=== PATIENT | female | born 1990 | race Caucasian/White ===

== ENCOUNTER 2017-08-13 10:31 | Inpatient (IN) | payer BC, OTHER ==
[~2017-08-13] VITALS: Ht 162.6 cm; Wt 81.6 kg
--- NOTE | 2017-08-13 11:30 | NUR ---
PRE-ASSESSMENT:ASSESSED PT IN INTAKE OFFICE, PT IS IN STABLE CONDITION, PT IS ALERT AND ORIENTED. PT IS ABLE TO SIGN CONSENT. EXPLAINED UNIT AND FACILITY PROTOCOLS. PT VERBALIZED COMPREHENSION
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
[2017-08-13] MEDS ORDERED: GABA800T2 PO (12:27)
[2017-08-13] MEDS ORDERED: QUET400T PO (12:27)
[2017-08-13 12:34] LABS: *URINE HCG, QUAL NEGATIVE (NEGATIVE)
[2017-08-13 12:45] LABS: *AMPHETAMINE, URINE POSITIVE (NEGATIVE); *BARBITURATE, URINE POSITIVE (NEGATIVE); *CANNABINOID, URINE POSITIVE (NEGATIVE); *COCCAINE, URINE POSITIVE (NEGATIVE); *OPIATE, URINE POSITIVE (NEGATIVE); *PHENCYCLIDINE SCREEN,URINE NEGATIVE (NEGATIVE)
[2017-08-13] MEDS ORDERED: DIAZEPAM 10 MG TABLET PO ONE (12:45)
[2017-08-13] MEDS ORDERED: BUPRENORPHINE HCL 2 MG TAB.SUBL SL ONE (12:45)
[2017-08-13] MEDS ORDERED: MIRALAX 17 GM POWD.PACK PO PRN (13:00)
[2017-08-13] MEDS ORDERED: BUPRENORPHINE HCL 2 MG TAB.SUBL SL PRN (13:00)
[2017-08-13] MEDS ORDERED: MAGNESIUM HYDROXIDE 30 ML LIQUID UDC PO PRN (13:00)
[2017-08-13] MEDS ORDERED: diphenhydrAMINE 50 MG CAPSULE PO PRN (13:00)
[2017-08-13] MEDS ORDERED: DIAZEPAM 5 MG TABLET PO PRN (13:00)
[2017-08-13] MEDS ORDERED: DIAZEPAM 10 MG TABLET PO PRN ×2 (13:00→13:15)
[2017-08-13] MEDS ORDERED: ONDANSETRON 4 MG/2 ML VIAL IM PRN (13:00)
[2017-08-13] MEDS ORDERED: MAG HYDROX/AL HYDROX/SIMETH 30 ML LIQUID UDC PO PRN (13:00)
[2017-08-13] MEDS ORDERED: CLONIDINE HCL 0.1 MG TABLET PO PRN (13:00)
[2017-08-13] MEDS ORDERED: LOPERAMIDE HCL 2 MG CAPSULE PO PRN (13:00)
[2017-08-13] MEDS ORDERED: THIAMINE HCL 200 MG/2 ML VIAL IM ONE (13:00)
[2017-08-13] MEDS ORDERED: LORAZEPAM 2 MG/1 ML VIAL IM PRN (13:00)
[2017-08-13] MEDS: GABAPENTIN 300 MG CAPSULE PO SCH ×3 (13:55→21:26)
[2017-08-13] MEDS: IBUPROFEN 600 MG TABLET PO PRN ×2 (13:56→21:25)
[2017-08-13] MEDS: ONDANSETRON ODT 4 MG TAB.RAPDIS SL PRN ×2 (13:56→21:40)
--- NOTE | 2017-08-13 13:56 | NUR ---
PRN Administered: pt with complaints of nausea and pain on her L hand. Prn motrin was administered for pain scale of 8/10 and zofran 4 mg for nausea.
[2017-08-13 14:20] LABS: BASOPHILS % (AUTO) 0.5 % (0.0-2.0); EOSINOPHILS # (AUTO) 0.1 K/uL (0.0-0.7); EOSINOPHILS % (AUTO) 1.7 % (0.0-7.0); HEMATOCRIT 37.1 % (31.2-41.9); HEMOGLOBIN 12.9 g/dL (10.9-14.3); LYMPHOCYTES # (AUTO) 1.6 K/uL (20.0-40.0); LYMPHOCYTES % (AUTO) 26.6 % (20.5-51.5); MEAN CORPUSCULAR HEMOGLOBIN 28.7 uug (24.7-32.8); MEAN CORPUSCULAR HGB CONC 35 g/dL (32.3-35.6); MEAN CORPUSCULAR VOLUME 82.4 fL (75.5-95.3); MONOCYTES # (AUTO) 0.4 K/uL (2.0-10.0); NEUTROPHILS % (AUTO) 64.2 % (38.5-71.5); PLATELET COUNT (AUTO) 288 K/uL (179-408); RED BLOOD CELL COUNT(AUTO) 4.51 MIL/uL (3.63-4.92); WHITE BLOOD COUNT (AUTO) 6.2 K/uL (3.8-11.8)
[2017-08-13 14:29] LABS: ALANINE AMINOTRANSFERASE 35 U/L (14-59); ALKALINE PHOSPHATASE 121 U/L (50-136); ASPARTATE AMINOTRANSFERASE 27 U/L (15-37); BILIRUBIN,TOTAL 0.7 mg/dL (0.2-1.0); CARBON DIOXIDE 26 mmol/L (21-32); CHLORIDE 101 mmol/L (98-107); CREATININE 0.7 mg/dL (0.6-1.3); GLUCOSE 128 mg/dL (74-106); POTASSIUM 3.4 mmol/L (3.5-5.1); TOTAL PROTEIN, SERUM 8.4 g/dL (6.4-8.2); UREA NITROGEN, BLOOD 11 mg/dL (7-18)
[2017-08-13 14:46] LABS: ETHANOL < 3 MG/DL (0-0)
[2017-08-13 15:31] VITALS: BP 115/73
[2017-08-13] MEDS: ACETAMINOPHEN 325 MG TABLET PO PRN (17:09)
[2017-08-13] MEDS: DIAZEPAM 10 MG TABLET PO PRN ×2 (17:10→21:41)
--- NOTE | 2017-08-13 17:10 | NUR ---
prn valium was administered pts ciwa is 16, pt noted crying and rocking in bed, pt with increased anxiety and agitation. 10 mg valium administered
[2017-08-13 17:41] VITALS: BP 125/89
--- NOTE | 2017-08-13 18:44 | NUR ---
end of shift night: pt is in stable condition, pt with intermittent pain on L hand. pt is admitted to [facility] mainly for opiate and benzo withdrawal/dependence. pt's last ciwa 16 before PRN valium and cows of 11. pt to start a 5 day subutex and valium taper tomorrow. pt with soft cast for immobilization to land hand. pain management alternated with motrin and tylenol. pt without A/R to medications administered. will endorse pt to php engineer nurse.
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
[2017-08-13 20:00] VITALS: BP 110/73
[2017-08-13] MEDS: QUETIAPINE FUMARATE 200 MG TABLET PO SCH (21:25)
[2017-08-13] MEDS: METHOCARBAMOL 750 MG TABLET PO PRN (21:40)
--- NOTE | 2017-08-13 21:40 | NUR ---
PRN SUBUTEX 4 MG, VALIUM 10 MG, ROBAXIN, MOTRIN, ZOFRAN ADMINISTRATION COWS 12 CIWA 12. Pt presents with moderate anxiety, moderate restlessness, sweats, chills, body aches, pain in left hand 9/10 and nausea. Denies vomiting. Safety measures in place. Call light within reach. Will continue to monitor.
--- NOTE | 2017-08-13 22:10 | NUR ---
PRN ZOFRAN 4 MG SL REASSESSMENT Pt reports improvement in nausea, denies any episodes of vomiting. Safety measures in place. Call light within reach. Will continue to monitor.
--- NOTE | 2017-08-13 22:40 | NUR ---
PRN SUBUTEX, VALIUM, ROBAXIN, MOTRIN REASSESSMENT COWS 7 CIWA 7. Pt has improvement in overall symptoms, mostly anxiety and restlessness. Pt reports improvement in body aches and left hand, but discomfort/pain still present at tolerable level 5/10. Safety measures in place. Call light within reach. Will continue to monitor.
[2017-08-14] VITALS: BP 109/68
[2017-08-14] MEDS: HYDROXYZINE PAMOATE 25 MG CAPSULE PO PRN (00:43)
[2017-08-14] MEDS: ACETAMINOPHEN 325 MG TABLET PO PRN (00:43)
[2017-08-14] MEDS: DICYCLOMINE HCL 20 MG TABLET PO PRN ×2 (00:43→21:38)
--- NOTE | 2017-08-14 00:43 | NUR ---
PRN VISTARIL, TYLENOL, BENTYL ADMINISTRATION Pt reports persistent anxiety and restlessness. Encouraged non-pharmacological ways of reducing stress and anxiety. Pt reports pain 8/10 in left hand and generalized body aches. Pt complains of stomach cramps. Safety measures in place. Call light within reach. Will continue to monitor.
--- NOTE | 2017-08-14 01:43 | NUR ---
PRN VISTARIL, TYLENOL, AND BENTYL REASSESSMENT Pt is laying in bed with eyes closed. Respirations 16, even and unlabored. Safety measures in place. Call light within reach. Will continue to monitor.
[2017-08-14 04:00] VITALS: BP 107/70
--- NOTE | 2017-08-14 04:00 | NUR ---
COWS/CIWA DEFERRED Pt is laying in bed with eyes closed, COWS/CIWA deferred, to be assessed when pt is awake per orders. Respirations 16, even and unlabored. Safety measures in place. Call light within reach. Will continue to monitor.
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
--- NOTE | 2017-08-14 07:30 | NUR ---
start of shift note: received pt from shift production supervisor nurse, pt is sleeping at this time, pt's last cows 11 and ciwa 12.. pt is admitted to [facility] for opiate/benzo withdrawal/dependence. pt without A/R to medication. will continue to monitor pt for any changes and continue to meet pts needs.
[2017-08-14 09:00] VITALS: BP 124/68
[2017-08-14] MEDS ORDERED: 5 DAY TAPER BUPRENORPHINE -SERENITY PROTOCOL SL PRN (09:00)
[2017-08-14] MEDS ORDERED: 5 DAY TAPER VALIUM-SERENITY PROTOCOL PO PRN (09:00)
[2017-08-14] MEDS ORDERED: TUBERCULIN,PURIF.PROT.DERIV. 5 TU/0.1 ML TEST ID ONE (09:00)
[2017-08-14] MEDS: BUPRENORPHINE HCL 2 MG TAB.SUBL SL SCH ×4 (10:03→21:37)
[2017-08-14] MEDS: DOCUSATE SODIUM 250 MG CAPSULE PO SCH (10:03)
[2017-08-14] MEDS: GABAPENTIN 300 MG CAPSULE PO SCH ×3 (10:03→21:38)
[2017-08-14] MEDS: MULTIVITAMINS,THERAPEUTIC TABLET PO SCH (10:03)
[2017-08-14] MEDS: DIAZEPAM 10 MG TABLET PO SCH ×4 (10:03→21:37)
[2017-08-14] MEDS: THIAMINE HCL 100 MG TABLET PO SCH (10:04)
[2017-08-14] MEDS: FOLIC ACID 1 MG TABLET PO SCH (10:04)
[2017-08-14 12:07] LABS: HEPATITIS B SURFACE AG Negative (Negative)
--- NOTE | 2017-08-14 13:00 | NUR ---
ciwa/ cows deferred, pt is sleeping at this time.
[2017-08-14 13:55] VITALS: BP 90/62
--- NOTE | 2017-08-14 14:39 | NUR ---
WOUND CARE CONSULT: PT PRESENTS WITH LEFT HAND/ARM SPLINT ORTHO DRESSING. DRESSING DRY AND INTACT AND LEFT IN PLACE. DEFER TO ORTHO. RT ELBOW OPEN WOUND NOTED, PRESENT ON ADMISSION. RECOMMENDATIONS MADE FOR WOUND CARE AND DISCUSSED WITH NURSING STAFF. RECOMMEND SURGICAL CONSULT FOR RT ELBOW WELL. WILL SEE PRN. RODRIGUEZ IN AGREEMENT WITH PLAN OF CARE. Addendum: 08/14/17 at 1441 by MEHDI ENGEL RN Amended: Links added.
--- NOTE | 2017-08-14 16:07 | NUR ---
Therapist prompted client to come into group today. Client agreed to try to make it to group.
[2017-08-14 17:04] VITALS: BP 117/67
[2017-08-14] MEDS ORDERED: DIAZEPAM 10 MG TABLET PO PRN ×2 (19:00)
[2017-08-14] MEDS ORDERED: DIAZEPAM 5 MG TABLET PO PRN (19:00)
--- NOTE | 2017-08-14 19:08 | NUR ---
end of shift note: pt is in stable condition at this time, pt was seen by wound nurse with new orders, pt is admitted to [facility] for benzo/opiate withdrawal/dependence. pt's last cows 3 and ciwa 4. pt with pending consultation for ortho and OT evaluation. pt without A/R to medications. will endorse pt to fast food shift lead nurse.
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
[2017-08-14 20:00] VITALS: BP 126/57
[2017-08-14] MEDS: IBUPROFEN 600 MG TABLET PO PRN (21:37)
[2017-08-14] MEDS: METHOCARBAMOL 750 MG TABLET PO PRN (21:37)
--- NOTE | 2017-08-14 21:37 | NUR ---
PRN MOTRIN, ROBAXIN, BENTYL ADMINISTRATION Pt presents with pain in left hand/finger and body aches 9/10. Pt also presents with stomach cramps. Safety measures in place. Call light within reach. Will continue to monitor.
[2017-08-14] MEDS: QUETIAPINE FUMARATE 200 MG TABLET PO SCH (21:38)
[2017-08-14] MEDS: NEOMY/BACITRAC/POLYMI OINT 28.35 GM TUBE TOP SCH (21:43)
--- NOTE | 2017-08-14 22:37 | NUR ---
PRN MOTRIN, ROBAXIN, AND BENTYL REASSESSMENT Pt reports improvement in pain in left hand and body aches to 5/10. Pt reports improvement in stomach cramps to tolerable level. Safety measures in place. Call light within reach. Will continue to monitor.
[2017-08-15] VITALS: BP 104/71
[2017-08-15 04:00] VITALS: BP 107/57
--- NOTE | 2017-08-15 04:00 | NUR ---
COWS/CIWA DEFERRED AND VITALS REFUSED Pt is laying in bed with eyes closed, COWS/CIWA deferred, to be assessed when pt is awake per orders. Vitals refused. Respirations 16, even and unlabored. Safety measures in place. Call light within reach. Will continue to monitor.
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
[2017-08-15 08:00] VITALS: BP 117/65
--- NOTE | 2017-08-15 08:00 | NUR ---
START OF SHIFT RECEIVED PT LAYING IN BED A/O X4, RESPIRATIONS EVEN AND UNLABORED. PT REPORTS BODY ACHES, RESTLESSNESS AND ANXIETY. SLIGHT TREMORS NOTED. NO NAUSEA REPORTED. PT IS ON A 5 DAY SUBUTEX AND 5 DAY VALIUM TAPER THAT STARTED ON 08/14/17; TOLERATING WELL. PT HAS A INDEX FINGER FX ON THE LEFT HAND, 2 CARLO ON HEAD FROM A LACERATION, BRUISING ON L LATERAL THIGH, R ARM, AND L HAND. ENCOURAGED PT TO INCREASE FLUIDS TO FACILITATE IN DETOX PROCESS. SIDE RAILS UP X2, CALL LIGHT WITHIN REACH. SZ AND FALL PRECAUTIONS TAKEN.
[2017-08-15] MEDS: DIAZEPAM 10 MG TABLET PO SCH ×3 (08:19→20:16)
[2017-08-15] MEDS: DOCUSATE SODIUM 250 MG CAPSULE PO SCH (08:19)
[2017-08-15] MEDS: BUPRENORPHINE HCL 2 MG TAB.SUBL SL SCH ×3 (08:19→20:15)
[2017-08-15] MEDS: MULTIVITAMINS,THERAPEUTIC TABLET PO SCH (08:20)
[2017-08-15] MEDS: GABAPENTIN 300 MG CAPSULE PO SCH ×3 (08:20→20:15)
[2017-08-15] MEDS: FOLIC ACID 1 MG TABLET PO SCH (08:20)
[2017-08-15] MEDS: NEOMY/BACITRAC/POLYMI OINT 28.35 GM TUBE TOP SCH ×2 (08:20→20:15)
[2017-08-15] MEDS: THIAMINE HCL 100 MG TABLET PO SCH (08:20)
--- NOTE | 2017-08-15 08:30 | NUR ---
[facility] k+= 3.4. made aware with new orders for labs to be drawn in the am.
--- NOTE | 2017-08-15 09:00 | NUR ---
OT Pt was seen by OT for eval for brace for left index finger. OT stated that brace is available via hospital supplier and is attempting to acquire the correct brace. OT instructed pt to keep left index finger immobilized. Reinforced education to pt with acknowledgement.
--- NOTE | 2017-08-15 09:30 | NUR ---
TRIPLE ATB AND TX Pt refused to have tx done to left elbow. Pt stated, " No! I don't want it fucking changed!"
[2017-08-15 12:57] VITALS: BP 121/64
[2017-08-15 14:58] LABS: CREATININE 0.9 mg/dL (0.6-1.3); MAGNESIUM 1.6 mg/dL (1.8-2.4); PHOSPHOROUS 3.6 mg/dL (2.5-4.9)
[2017-08-15 15:02] LABS: EOSINOPHILS # (AUTO) 0.2 K/uL (0.0-0.7); EOSINOPHILS % (AUTO) 4.1 % (0.0-7.0); LYMPHOCYTES % (AUTO) 46.4 % (20.5-51.5); MEAN CORPUSCULAR HEMOGLOBIN 28.3 uug (24.7-32.8); MEAN CORPUSCULAR HGB CONC 33 g/dL (32.3-35.6); MEAN CORPUSCULAR VOLUME 84.6 fL (75.5-95.3); MONOCYTES # (AUTO) 0.3 K/uL (2.0-10.0); MONOCYTES % (AUTO) 7.5 % (0.0-11.0); NEUTROPHILS # (AUTO) 1.8 K/uL (1.8-8.9); PLATELET COUNT (AUTO) 221 K/uL (179-408); WHITE BLOOD COUNT (AUTO) 4.3 K/uL (3.8-11.8)
[2017-08-15 15:19] LABS: HEMATOCRIT 30.5 % (31.2-41.9); HEMOGLOBIN 10.2 g/dL (10.9-14.3)
--- NOTE | 2017-08-15 15:40 | NUR ---
LABS Labs: Mg=1.6, RBC=3.6, Hgb=10.2, Hct=30.5. made aware.
[2017-08-15 16:00] VITALS: BP 114/58
[2017-08-15] MEDS ORDERED: MAGNESIUM OXIDE 400 MG TABLET PO ONE (17:00)
--- NOTE | 2017-08-15 17:30 | NUR ---
TX Pt allowed for treatment to be completed.
--- NOTE | 2017-08-15 18:46 | NUR ---
END OF SHIFT Pt A/O X4, RESPIRATIONS EVEN AND UNLABORED. PT REPORTS BODY ACHES, RESTLESSNESS AND ANXIETY. PT APPEARS AGITATED AND SLIGHT TREMORS NOTED. PT LAST COWS 6 AND CIWA 5 AT 1600. PT IS PT IS ON A 5 DAY SUBUTEX AND 5 DAY VALIUM TAPER THAT STARTED ON 08/14/17; TOLERATING WELL. PT HAS A INDEX FINGER FX ON THE LEFT HAND, 2 CARLO ON HEAD FROM A LACERATION, BRUISING ON L LATERAL THIGH, R ARM, AND L HAND. PT HAD OT CONSULT FOR FITTING FOR A NEW BRACE. DRESSING WAS CHANGED PER DOCTORS ORDERS. THE TYPE OF BRACE IS NOT IN STOCK AND WILL BE ORDERED. ENCOURAGED PT TO INCREASE FLUIDS TO FACILITATE IN DETOX PROCESS. SIDE RAILS UP X2, CALL LIGHT WITHIN REACH. SZ AND FALL PRECAUTIONS TAKEN. WILL GIVE ALL ENDORSEMENT TO HOUSE FATHER NURSE.
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
[2017-08-15 20:00] VITALS: BP_SYST 106; BP_DIAS 54; BP_DIAS 61
[2017-08-15] MEDS: IBUPROFEN 600 MG TABLET PO PRN (20:15)
[2017-08-15] MEDS: METHOCARBAMOL 750 MG TABLET PO PRN (20:15)
--- NOTE | 2017-08-15 20:15 | NUR ---
PRN ROBAXIN, MOTRIN AND BENTYL ADMINISTRATION Pt reports body aches and pain in left hand 05/21. Pt also reports stomach spasms/cramps. Safety measures in place. Call light within reach. Will continue to monitor.
[2017-08-15] MEDS: QUETIAPINE FUMARATE 200 MG TABLET PO SCH (20:16)
[2017-08-15] MEDS: DICYCLOMINE HCL 20 MG TABLET PO PRN (20:16)
--- NOTE | 2017-08-15 21:15 | NUR ---
PRN ROBAXIN, MOTRIN AND BENTYL REASSESSMENT Pt reports improvement in body aches to tolerable level. Pt reports pain 6/10 in left hand. Pt reports stomach cramps improved to tolerable level. Safety measures in place. Call light within reach. Will continue to monitor.
[2017-08-16] VITALS: BP 99/46
--- NOTE | 2017-08-16 | NUR ---
COWS/CIWA DEFERRED Pt is laying in bed with eyes closed, COWS/CIWA deferred, to be assessed when pt is awake. Respirations 16, even and unlabored. Safety measures in place. Call light within reach. Will continue to monitor.
[2017-08-16 04:00] VITALS: BP 95/47
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
--- NOTE | 2017-08-16 07:45 | NUR ---
BEGINNING OF SHIFT Patient endorsement report received from assistant casino shift manager nurse, all pertinent information discussed. patient is a 27 year old female admitted on: 08/13/2017, patient with admitting Dx: Opiate/bzo/ dependence. Patient currently with ongoing 5 day Valium and 5 day Subutex taper as ordered. well tolerated. During assistant casino shift manager patient received PRN: Robaxin, Motrin, and Bentyl last ciwa score of: 14 or cow score of: 13. slept for 7 hours. Received patient in room. Alert and oriented x 4. On fall and seizure precautions. Educated patient on the current plan of care for the day and medication regimen. Safety measures in place. call light kept with in reach, will continue to monitor closely.
[2017-08-16] MEDS ORDERED: BUPRENORPHINE HCL 2 MG TAB.SUBL SL SCH (09:00)
[2017-08-16 09:14] VITALS: BP 90/63
[2017-08-16] MEDS: DOCUSATE SODIUM 250 MG CAPSULE PO SCH (09:16)
[2017-08-16] MEDS: GABAPENTIN 300 MG CAPSULE PO SCH ×3 (09:16→20:21)
[2017-08-16] MEDS: MULTIVITAMINS,THERAPEUTIC TABLET PO SCH (09:17)
[2017-08-16] MEDS: FOLIC ACID 1 MG TABLET PO SCH (09:17)
[2017-08-16] MEDS: THIAMINE HCL 100 MG TABLET PO SCH (09:17)
[2017-08-16] MEDS: NEOMY/BACITRAC/POLYMI OINT 28.35 GM TUBE TOP SCH ×2 (09:17→22:11)
[2017-08-16] MEDS: DIAZEPAM 5 MG TABLET PO SCH ×4 (09:17→20:21)
--- NOTE | 2017-08-16 10:33 | NUR ---
Therapist prompted client about group times. Client stated she is not going to attend groups today because she does not feel well.
[2017-08-16 13:08] VITALS: BP 104/58
[2017-08-16] MEDS: MAGNESIUM OXIDE 400 MG TABLET PO SCH ×2 (14:18→20:21)
[2017-08-16] MEDS: PANTOPRAZOLE SODIUM 40 MG TABLET.DR PO SCH (14:18)
[2017-08-16] MEDS: BUPRENORPHINE HCL 2 MG TAB.SUBL SL SCH ×2 (14:18→20:22)
[2017-08-16 17:09] VITALS: BP 111/69
--- NOTE | 2017-08-16 18:08 | NUR ---
THerapist prompted client to attend group, client agreed to attend.
--- NOTE | 2017-08-16 18:51 | NUR ---
ORTHO COMMUNICATION Received called from Dr. Thapa, regarding left hand surgery. Patient consented and agreed for surgery tomorrow morning at 0730. Per Dr. Thapa spoke with patient and obtained consent regarding surgery. Patient to be NPO after midnight. Patient is aware. will continue to monitor.
--- NOTE | 2017-08-16 19:04 | NUR ---
END OF SHIFT Patient alert and oriented x4, compliant with therapeutic plan of care. Patient with admitting Dx: Opiate/BZO dependence. Patient continues on 5 day Subutex and 5 day Valium taper as ordered, well tolerated, patient currently on day 3 of taper, well tolerated, no ASE noted. 0900 assessment patient presented with: heart rate of: 92, flushed, difficulty sitting still, dilated pupils, mild bone and joint aches, moist eyes, irritable, and anxiety with cow score of: 10 and ciwa score of: 6; 1300 assessment patient presented with: heart rate of 90, c/o chills, mild anxiety, barely sweating, and mild agitation with cow score of: 8 and ciwa score of: 3; 1700 patient presented with: heart rate of 103, c/o chills, mild anxiety, barely sweating, and mild agitation with cow score of: 9 and ciwa score of: 3. Detox medication effective at reducing withdrawal symptoms. Patient encouraged adequate PO fluid intake as tolerated. Encouraged to attend group therapies/sessions to learn new coping skills to prevent relapse, denies any SI/HI. Patient received no PRNs during shift. Patient Patients Respirations even and unlabored. No SOB noted, lungs are clear upon auscultation. Skin warm and dry to touch. Abdomen soft and non-distended with (+) BS in all 4 quadrants. No complains of N/V/D or constipation noted. Bladder non-distended. Voids independently. Safety measures in place. Call light kept with in reach. All needs met and rendered. Patient endorsed to shift production supervisor nurse, all pertinent information discussed.
--- NOTE | 2017-08-16 19:15 | NUR ---
START OF SHIFT Received 27 year old female patient admitted on 08/13/17 for Opiate, methamphetamine, crack cocaine, Phenobarbital, marijuana and Xanax dependency. Pt is full code with RUBI. She reports a PMHx of seizure related to benzo withdrawal, anxiety, hep C and 2nd left finger injury. She reports using Heroin 2.5 gram IV daily for 4 months. Methamphetamine 1-2 puffs x1 week, Crack cocaine on 08/11/17 1-2 bowls. Phenobarbital 30 mg every 4 hours 1 month ago, marijuana 1-2 hits from a joint, and Xanax 12 mg daily for 4 months. Pt is currently receiving 5 day Subutex and 5 day Valium taper and tolerating well. Per endorsement, pt is scheduled to have surgery on left finger tomorrow at 0730. She will be NPO at midnight. Pt with right elbow abrasion, being treated with triple antibiotic. Pt is alert and oriented x4, breathing is even and unlabored. Safety measures in place. Will continue to monitor.
[2017-08-16 20:00] VITALS: BP 127/78
[2017-08-16] MEDS: QUETIAPINE FUMARATE 200 MG TABLET PO SCH (20:21)
[2017-08-16 22:55] LABS: *OCCULT BLOOD STOOL NEGATIVE (NEGATIVE)
--- NOTE | 2017-08-16 23:05 | NUR ---
NURSING NOTE Consents for surgery of closed reduction with possible open reduction of the second metacarpal fracture of left hand and pin fixation, and anesthesia were signed by pt. Pt verbalized understanding. Also explained to pt regarding NPO status after midnight. Pt verbalized understanding.
[2017-08-17] VITALS: BP 105/65
--- NOTE | 2017-08-17 03:15 | NUR ---
NURSING NOTE Pt was seen in the kitchen grabbing drinks. Reminded pt regarding her NPO status d/t her scheduled surgery in the morning. Pt became agitated was noted to bring V8 juice into her room. Reminded pt again about her NPO status. TRUSS ASSEMBLER flame cutting supervisor and primary nurse at bedside explaining risks of drinking fluids before surgery. Pt noted with agitation, and raising voice at staff. Allowed pt to have ice chips at bedside.
--- NOTE | 2017-08-17 04:00 | NUR ---
VITALS REFUSED, COWS/CIWA DEFERRED 0400 vitals refused. COWS and CIWA deferred d/t pt lying in bed with eyes closed noted to be asleep. Respirations 16, breathing is even and unlabored. Safety measures in place. Will monitor.
--- NOTE | 2017-08-17 05:30 | NUR ---
NPO Non-Compliance/Surgery Canceled: Patient observed going into kitchen to get a V8 drinks at 03:10. Patient informed that she is to NPO for surgery in the morning. Patient refused to surrender drink. Primary nurse was able to compromise with patient and allowed to have one small cup of fluids with ice. Cup was then removed from patient room at 04:00. At 05:30, patient went back into the kitchen and took a cup of water. Patient again educated on the risks of not being NPO, up to and including , and patient states, "I don't fucking care. I'm leaving tomorrow anyway." Patient also educated on the risks of not treating fracture of the left hard. Patient again responded that she did not care. Surgery Department was informed of the non-compliance with NPO. [place] from surgery contacted Anesthesiologist, who refused to do the procedure because the patient had drank fluids within 2 hours of scheduled procedure.
--- NOTE | 2017-08-17 07:11 | NUR ---
END OF SHIFT Pt is a 27 year old female patient admitted on 08/13/17 for Opiate, methamphetamine, crack cocaine, Phenobarbital, marijuana and Xanax dependency. Pt is full code with NKA. She reports a PMHx of seizure related to benzo withdrawal, anxiety, hep C and 2nd left finger injury. Pt continues on a 5 day Subutex and 5 day Valium taper and tolerating well. Pt's surgery was cancelled by anesthesiologist d/t non compliance with NPO status. Pt did not receive or request PRN medications. She slept a total of 8 hrs, Intake:1400mL, Void:x1, BM:0, COWS: 8, CIWA:5. Pt remains alert and oriented x4, breathing is even and unlabored. Safety measures in place. Will endorse to AM shift.
--- NOTE | 2017-08-17 07:45 | NUR ---
START OF SHIFT Rcvd endorsement from ongoing nurse, client is in room, she presents with depressed mood, flat affect, clammy skin noted to touch. She reports generalized body aches, restless legs, abdominal cramps, irritability because she is hungry, client was schedule for surgery this am, but it was cancelled d/t client not been compliant with NPO. Clients room is litter with several candy wraps, open apple juice, and soft drink bottles. L hand with splint d/t fracture 2nd metacarpal, she denies pain at this time. right elbow abrasion, treatment with triple antibiotic, slowly healing. Client is a 27 y/o female, admitted to [facility] for withdrawal from benzodiazepines and opiates. She is on a 6 day Valium taper and 5 day Subutex taper. Last CIWA 8 @ 1999. Client slept 8 hrs. She reports a hx of withdrawal-induced seizures, Client reports NKA, she is full code, regular diet. Side rails x 2 up/padded for seizure precautions. Call light within reach.
[2017-08-17 08:12] VITALS: BP 118/61
[2017-08-17] MEDS: BUPRENORPHINE HCL 2 MG TAB.SUBL SL SCH ×3 (08:30→21:17)
[2017-08-17] MEDS: THIAMINE HCL 100 MG TABLET PO SCH (08:30)
[2017-08-17] MEDS: GABAPENTIN 300 MG CAPSULE PO SCH ×3 (08:30→21:17)
[2017-08-17] MEDS: DOCUSATE SODIUM 250 MG CAPSULE PO SCH (08:30)
[2017-08-17] MEDS: FOLIC ACID 1 MG TABLET PO SCH (08:30)
[2017-08-17] MEDS: PANTOPRAZOLE SODIUM 40 MG TABLET.DR PO SCH (08:30)
[2017-08-17] MEDS: DIAZEPAM 5 MG TABLET PO SCH ×3 (08:30→21:18)
[2017-08-17] MEDS: MULTIVITAMINS,THERAPEUTIC TABLET PO SCH (08:30)
[2017-08-17] MEDS: NEOMY/BACITRAC/POLYMI OINT 28.35 GM TUBE TOP SCH ×2 (08:37→21:19)
[2017-08-17 12:00] VITALS: BP_SYST 108; BP_SYST 147; BP_DIAS 66; BP_DIAS 91
[2017-08-17] MEDS: IBUPROFEN 600 MG TABLET PO PRN ×2 (15:13→21:47)
--- NOTE | 2017-08-17 15:13 | NUR ---
PRN Motrin 600mg PO administered for left lower molar pain 02/18. Call light within reach.
--- NOTE | 2017-08-17 16:13 | NUR ---
Reassessment PRN Motrin 600mg PO left lower molar pain diminished to a tolerable 2/10.
[2017-08-17 16:55] VITALS: BP 127/80
--- NOTE | 2017-08-17 18:52 | NUR ---
END OF SHIFT Client is a 27 y/o female, a/o x 4, admitted to [facility] for withdrawal from benzodiazepines and opiates. She is on a 6 day Valium taper and 5 day Subutex taper. Last CIWA 5/ 7 @ 1600. PRN Motrin 600mg PO administered for L lower molar pain, noted effective. Encouragement needed to attend group therapy. Adequate fluid PO intake 1250mL, void x 3. She consumes 75-100% of meals. She reports a hx of withdrawal-induced seizures, Client reports NKA, she is full code, regular diet. Side rails x 2 up/padded for seizure precautions. Call light within reach.
--- NOTE | 2017-08-17 19:15 | NUR ---
START OF SHIFT Received 27 year old female patient admitted on 08/13/17 for Opiate, methamphetamine, crack cocaine, Phenobarbital, marijuana and Xanax dependency. Pt is full code with RUBI. She reports a PMHx of seizure related to benzo withdrawal, anxiety, hep C and 2nd left finger injury. She reports using Heroin 2.5 gram IV daily for 4 months. Methamphetamine 1-2 puffs x1 week, Crack cocaine on 08/11/17 1-2 bowls. Phenobarbital 30 mg every 4 hours 1 month ago, marijuana 1-2 hits from a joint, and Xanax 12 mg daily for 4 months. Pt is currently receiving 5 day Subutex and 5 day Valium taper and tolerating well. Per endorsement, she received PRN Motrin for left lower molar pain. Pt is alert and oriented x4, breathing is even and unlabored. Safety measures in place. Will continue to monitor.
[2017-08-17 20:00] VITALS: BP 130/83
[2017-08-17] MEDS: QUETIAPINE FUMARATE 200 MG TABLET PO SCH (21:17)
[2017-08-17] MEDS: MAGNESIUM OXIDE 400 MG TABLET PO SCH (21:18)
--- NOTE | 2017-08-17 21:47 | NUR ---
PRN MOTRIN Pt complains of left lower molar pain 05/21. PRN Motrin administered as ordered. Will monitor effectiveness.
--- NOTE | 2017-08-17 22:47 | NUR ---
PRN MOTRIN REASSESSMENT PRN medication effective. Pt is lying in bed with eyes closed noted to be asleep. No facial grimacing noted. Will continue to monitor.
--- NOTE | 2017-08-18 | NUR ---
VITALS REFUSED, COWS and CIWA DEFERRED 0000 vitals refused. COWS and CIWA deferred d/t pt lying in bed with eyes closed noted to be asleep. Breathing is even and unlabored. Safety measures in place. Will monitor.
--- NOTE | 2017-08-18 04:00 | NUR ---
VITALS REFUSED, COWS and CIWA DEFERRED 0400 vitals refused. COWS and CIWA deferred d/t pt lying in bed with eyes closed noted to be asleep. Breathing is even and unlabored. Safety measures in place. Will monitor.
--- NOTE | 2017-08-18 07:10 | NUR ---
END OF SHIFT Pt is a 27 year old female patient admitted on 08/13/17 for Opiate, methamphetamine, crack cocaine, Phenobarbital, marijuana and Xanax dependency. Pt is full code with RUBI. She reports a PMHx of seizure related to benzo withdrawal, anxiety, hep C and 2nd left finger injury. She continues on 5 day Subutex and 5 day Valium taper and tolerating well. She received PRN Motrin at 2147 for left lower molar pain. She slept a total of 7hrs, Intake: 1500mL, Void: x3, BM:x1, COWS:8, CIWA:5. Pt remains alert and oriented x4, breathing is even and unlabored. Safety measures in place. Will endorse to AM shift.
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
[2017-08-18 08:02] VITALS: BP 133/80
[2017-08-18] MEDS: DIAZEPAM 5 MG TABLET PO SCH ×2 (08:47→21:09)
[2017-08-18] MEDS: PANTOPRAZOLE SODIUM 40 MG TABLET.DR PO SCH (08:47)
[2017-08-18] MEDS: MULTIVITAMINS,THERAPEUTIC TABLET PO SCH (08:47)
[2017-08-18] MEDS: FOLIC ACID 1 MG TABLET PO SCH (08:47)
[2017-08-18] MEDS: GABAPENTIN 300 MG CAPSULE PO SCH ×2 (08:47→14:54)
[2017-08-18] MEDS: THIAMINE HCL 100 MG TABLET PO SCH (08:47)
[2017-08-18] MEDS: DOCUSATE SODIUM 250 MG CAPSULE PO SCH (08:47)
[2017-08-18] MEDS: IBUPROFEN 600 MG TABLET PO PRN (08:47)
--- NOTE | 2017-08-18 08:47 | NUR ---
PRN Motrin 600mg PO administered for left lower molar pain 04/20. Call light within reach.
[2017-08-18] MEDS: NEOMY/BACITRAC/POLYMI OINT 28.35 GM TUBE TOP SCH ×2 (08:48→21:10)
[2017-08-18] MEDS ORDERED: BUPRENORPHINE HCL 2 MG TAB.SUBL SL SCH (09:00)
[2017-08-18 09:09] LABS: BASOPHILS % (AUTO) 0.4 % (0.0-2.0); EOSINOPHILS # (AUTO) 0.1 K/uL (0.0-0.7); EOSINOPHILS % (AUTO) 2.9 % (0.0-7.0); HEMATOCRIT 32.3 % (31.2-41.9); HEMOGLOBIN 10.8 g/dL (10.9-14.3); LYMPHOCYTES # (AUTO) 1.3 K/uL (20.0-40.0); LYMPHOCYTES % (AUTO) 28.6 % (20.5-51.5); MEAN CORPUSCULAR HEMOGLOBIN 28.3 uug (24.7-32.8); MEAN CORPUSCULAR HGB CONC 34 g/dL (32.3-35.6); MEAN CORPUSCULAR VOLUME 84.5 fL (75.5-95.3); MONOCYTES # (AUTO) 0.3 K/uL (2.0-10.0); MONOCYTES % (AUTO) 7.4 % (0.0-11.0); NEUTROPHILS # (AUTO) 2.9 K/uL (1.8-8.9); NEUTROPHILS % (AUTO) 60.7 % (38.5-71.5); PLATELET COUNT (AUTO) 206 K/uL (179-408); RED BLOOD CELL COUNT(AUTO) 3.82 MIL/uL (3.63-4.92); WHITE BLOOD COUNT (AUTO) 4.7 K/uL (3.8-11.8)
--- NOTE | 2017-08-18 09:47 | NUR ---
Reassessment PRN Motrin 600mg PO left lower molar pain diminished to a tolerable 2/10.
[2017-08-18 12:30] VITALS: BP 121/79
[2017-08-18] MEDS: METHOCARBAMOL 750 MG TABLET PO PRN (12:32)
[2017-08-18] MEDS: DICYCLOMINE HCL 20 MG TABLET PO PRN (12:32)
--- NOTE | 2017-08-18 12:32 | NUR ---
PRN Clonidine 0.1mg PO, Bentyl 20mg PO, Robaxin 750mg PO administered for anxiety MB increased P 110, abdominal spasms, and generalized body aches 03/20 respectively. Will continue to monitor.
--- NOTE | 2017-08-18 13:32 | NUR ---
Reassessment PRN Clonidine 0.1mg PO, Bentyl 20mg PO, Robaxin 750mg PO decreased P 93, she reports relief from abdominal spasms, and generalized body aches 3/10, but decline Tylenol or Motrin at this time, stating 'I'm going to wait and see Dr damian." Call light within reach.
--- NOTE | 2017-08-18 15:15 | NUR ---
NEW ORDER NPO after midnight, strict room restrictions, ortho surgery in AM. Addendum: 08/18/17 at 1836 by BRITTNY MUNOZ RN for Monday08/19/17
[2017-08-18] MEDS: BUPRENORPHINE HCL 2 MG TAB.SUBL SL SCH ×2 (15:31→21:09)
[2017-08-18] MEDS: KETOROLAC TROMETHAMINE 30 MG INJ IM PRN (15:32)
--- NOTE | 2017-08-18 15:32 | NUR ---
PRN Toradol 30mg Inj IM to R buttock for generalized body aches 05/21, client tolerated well. Will continue to monitor. call light within reach.
--- NOTE | 2017-08-18 15:45 | NUR ---
MD Notification Dr. Lama made aware of client's increased pulse 0800 P 114, 1200 P110, 1540 P107, client denies any chest pain, she reports generalized body aches and Left lower molar pain. NNO at this time. Charge nurse notified.
[2017-08-18 16:00] VITALS: BP 128/84
--- NOTE | 2017-08-18 16:02 | NUR ---
Reassessment PRN Toradol 30mg Inj IM, client verbalized relief from generalized body aches 2/10, but tolerable.
--- NOTE | 2017-08-18 19:15 | NUR ---
START OF SHIFT NOTE : Pt. is 27 year old female patient admitted on 08/13/17 for Opiate, methamphetamine, crack cocaine, Phenobarbital, marijuana and Xanax dependency. Pt is full code with NKA. She reports a PMHx of seizure related to benzo withdrawal, anxiety, hep C and 2nd left finger injury. Pt is currently on modified 6 day Subutex and 7 day Valium taper and tolerating well. Per endorsement, pt is scheduled to have surgery on left finger On Monday in A.M. She will be NPO on Monday after midnight. Pt with right elbow abrasion, being treated with triple antibiotic. Pt is alert and oriented x4, breathing is even and unlabored, is resting in the room. Safety measures in place : bed on lowest position with side rails x2 up for safety, call light within reach. Will continue to monitor closely and offer help.
--- NOTE | 2017-08-18 19:36 | NUR ---
END OF SHIFT Client is a 27 y/o female, a/o x 4, admitted to [facility] for withdrawal from benzodiazepines and opiates. She is on extended 7 day Valium taper and 6 day Subutex taper. Last CIWA 8 @ 1600. PRN Motrin 600mg PO administered for L lower molar pain, PRN Toradol 30mg Inj IM to R buttock for generalized body aches 05/21, noted effective. NPO after midnight, strict room restrictions, ortho surgery in AM for Monday. Encouragement needed to attend group therapy. Adequate fluid PO intake 2536mL, void x 4., stool x 1. She consumes 75-100% of meals. She reports a hx of withdrawal-induced seizures, Client reports NKA
[2017-08-18 20:00] VITALS: BP 119/80
[2017-08-18] MEDS ORDERED: GABAPENTIN 300 MG CAPSULE PO SCH (21:00)
--- NOTE | 2017-08-18 21:00 | NUR ---
PRN VISTARIL Pt. complains of increased level of anxiety. PRN VISTARIL given as ordered . Safety measures in place : bed on lowest position with side rails x2 up for safety, call light within reach. Will continue to monitor closely and offer help.
[2017-08-18] MEDS: CLONIDINE HCL 0.1 MG TABLET PO SCH (21:08)
[2017-08-18] MEDS: QUETIAPINE FUMARATE 200 MG TABLET PO SCH (21:09)
[2017-08-18] MEDS: BACLOFEN 10 MG TABLET PO SCH (21:09)
[2017-08-18] MEDS: HYDROXYZINE PAMOATE 25 MG CAPSULE PO PRN (21:09)
--- NOTE | 2017-08-18 22:00 | NUR ---
RE-ASSESSMENT Pt. is sleeping, RR=16 unlabored and even. Safety measures in place : bed on lowest position with side rails x2 up for safety, call light within reach. Will continue to monitor closely and offer help.
--- NOTE | 2017-08-19 06:49 | NUR ---
END OF SHIFT NOTE : Pt. is 27 year old female patient admitted on 08/13/17 for Opiate, methamphetamine, crack cocaine, Phenobarbital, marijuana and Xanax dependency. Pt is full code with NKA. She reports a PMHx of seizure related to benzo withdrawal, anxiety, hep C and 2nd left finger injury. Pt is currently on modified 6 day Subutex and 7 day Valium taper and tolerating well. Per endorsement, pt is scheduled to have surgery on left finger On Monday in A.M. She will be NPO on Monday after midnight. Pt with right elbow abrasion, being treated with triple antibiotic. Pt remains compliant with the treatment plan. PRN VISTARIL was given during my shift. V/S remain WNL. RR=16, even and unlabored, lungs clear upon auscultation, abdomen soft and non- distended. Pt denies nausea, vomiting and diarrhea at this moment. CIWA and COWS taken when pt. was alert during the night, LAST CIWA=5 , COWS=5 at 0400 , [id number], voided x3 , slept 3 hours. Safety measures in place : bed on lowest position with side rails x2 up for safety, call light within reach. Will continue to monitor closely and offer help.
--- NOTE | 2017-08-19 07:28 | NUR ---
START OF SHIFT RECEIVED PT RESTING IN BED, A/O X4, RESPIRATIONS EVEN AND UNLABORED. PT HAS A INJURY ON THE LEFT FINGER ON THE LEFT HAND; SCHEDULED SURGERY ON MONDAY AM. NPO AFTER MIDNIGHT TONIGHT. PT HAS A RIGHT ELBOW ABRASION, DRESSING DRY AND INTACT. PT IS ON A MODIFIED 6 DAY SUBUTEX AND 7 DAY VALIUM TAPER. ENCOURAGED PT TO INCREASE FLUID INTAKE TO PROMOTE DETOX PROCESS. BED ON LOWEST POSITION, SIDE RAILS UP X2. CALL LIGHT WITHIN REACH. ALL SAFETY MEASURES TAKEN. WILL CONTINUE TO MONITOR.
[2017-08-19 08:00] VITALS: BP 128/83
[2017-08-19] MEDS: DOCUSATE SODIUM 250 MG CAPSULE PO SCH (08:23)
[2017-08-19] MEDS: CLONIDINE HCL 0.1 MG TABLET PO SCH (08:23)
[2017-08-19] MEDS: FOLIC ACID 1 MG TABLET PO SCH (08:24)
[2017-08-19] MEDS: MULTIVITAMINS,THERAPEUTIC TABLET PO SCH (08:25)
[2017-08-19] MEDS: BACLOFEN 10 MG TABLET PO SCH (08:25)
[2017-08-19] MEDS: NEOMY/BACITRAC/POLYMI OINT 28.35 GM TUBE TOP SCH ×2 (08:26→21:28)
[2017-08-19] MEDS: PANTOPRAZOLE SODIUM 40 MG TABLET.DR PO SCH (08:29)
[2017-08-19] MEDS ORDERED: DIAZEPAM 5 MG TABLET PO SCH (09:00)
[2017-08-19] MEDS ORDERED: GABAPENTIN 300 MG CAPSULE PO SCH (09:00)
[2017-08-19] MEDS ORDERED: BUPRENORPHINE HCL 2 MG TAB.SUBL SL SCH (09:00)
[2017-08-19] MEDS: THIAMINE HCL 100 MG TABLET PO SCH (09:27)
[2017-08-19] MEDS: KETOROLAC TROMETHAMINE 30 MG INJ IM PRN ×2 (09:27→16:33)
--- NOTE | 2017-08-19 09:27 | NUR ---
PRN PT C/O OF PAIN IN THE LEFT INDEX FINGER 8/10 PAIN. TORADOL 30 MG IM PRN GIVEN AT 09.
--- NOTE | 2017-08-19 10:00 | NUR ---
REASSESSMENT TORADOL 30 MG IM ON THE L BUTTOCKS GIVEN. PT STATED MEDICATION WAS EFFECTIVE UPON REASSESSMENT.
[2017-08-19 12:00] VITALS: BP 101/52
[2017-08-19] MEDS ORDERED: hydrALAZINE HCL 50 MG TABLET PO PRN (13:00)
[2017-08-19] MEDS: GABAPENTIN 300 MG CAPSULE PO SCH ×2 (14:16→21:30)
[2017-08-19] MEDS: BACLOFEN 20 MG TABLET PO SCH ×2 (14:16→21:29)
[2017-08-19] MEDS ORDERED: PROPRANOLOL HCL 20 MG TABLET PO SCH (15:00)
[2017-08-19] MEDS ORDERED: PROP20TA22 PO (15:11)
[2017-08-19] MEDS ORDERED: BACL20TA PO (15:11)
[2017-08-19] MEDS ORDERED: QUET200T PO (15:11)
[2017-08-19] MEDS ORDERED: PANT40TA2 PO (15:11)
[2017-08-19] MEDS ORDERED: IBUP-1955 PO (15:11)
[2017-08-19] MEDS ORDERED: DICY20TA28 PO (15:11)
[2017-08-19] MEDS ORDERED: DIPH50CA37 PO (15:11)
[2017-08-19] MEDS ORDERED: HYDR-3895 PO (15:11)
[2017-08-19] MEDS ORDERED: GABA-534 PO (15:11)
[2017-08-19 16:00] VITALS: BP 121/75
--- NOTE | 2017-08-19 16:33 | NUR ---
PRN PT C/O OF PAIN 9/10 IN THE L INDEX FINGER AND REQUESTED TORADOL. TORADOL 30 MG IM PRN GIVEN ON R BUTTOCK.
--- NOTE | 2017-08-19 18:52 | NUR ---
END OF SHIFT PT SITTING IN THE ROOM, ANGRY AFFECT, A/O X4, RESPIRATIONS EVEN AND UNLABORED. PT REPORTED FEELING MORE ANXIOUS THAN EARLIER IN THE DAY, BODY ACHES, RESTLESSNESS, AND HOT FLASHES. APPEARED VERY AGITATED. PT REPORTED PAIN IN THE LEFT INDEX FINGER FROM AN INJURY WHICH SHE HAS A SURGERY SCHEDULED ON MONDAY AM; PT IS TO BE NPO AFTER MIDNIGHT AND ON RR. DRESSING CHANGED, DRY AND INTACT ON THE RIGHT ELBOW ABRASION DURING SHIFT. PT IS ON A MODIFIED 6 DAY SUBUTEX AND 7 DAY VALIUM TAPER, LAST DAY WAS TODAY. LAST COWS 7 AND CIWA 6 AT 1600. PT WAS GIVEN TORADOL 30 MG IM PRN TO THE L BUTTOCKS AT 0927 AND 1633 FOR PAIN IN THE L INDEX FINGER. PT VERBALIZED EFFECTIVENESS AT REASSESSMENT. ENCOURAGED PT TO INCREASE FLUID INTAKE TO PROMOTE DETOX PROCESS. BED ON LOWEST POSITION, SIDE RAILS UP X2. CALL LIGHT WITHIN REACH. ALL SAFETY MEASURES TAKEN. WILL GIVE ALL ENDORSEMENT TO COMMUNICATIONS MANAGER NURSE.
--- NOTE | 2017-08-19 19:15 | NUR ---
START OF SHIFT NOTE : Pt. is a 24 yo male admitted to [facility] on 08/18/2017 for BZD and suboxone dependence. NKA, full code status, and on a regular diet. PMH of neuropathy, seizures r/t drug withdrawal, neuropathy, anxiety, mood disorder, asthma, and ADHD. Pt. placed on modified 6 days Phenobarbital an dmodified 6 days Subutex taper on 08/18/2017, tolerating well. Pt. is in the activity room , watching TV , but wants his medications after 20:00. . Safety measures in place : bed on lowest position with side rails x2 up for safety, call light within reach. Will continue to monitor closely and offer help. Addendum: 08/20/17 at 0204 by CONCHITA BANEGAS RN Wrong patient.
--- NOTE | 2017-08-19 19:16 | NUR ---
START OF SHIFT NOTE : Pt. is 27 year old female patient admitted on 08/13/17 for Opiate, methamphetamine, crack cocaine, Phenobarbital, marijuana and Xanax dependency. Pt is full code with NKA. She reports a PMHx of seizure related to benzo withdrawal, anxiety, hep C and 2nd left finger injury. Pt is currently on modified 6 day Subutex and 7 day Valium taper and tolerating well. Per endorsement, pt is scheduled to have surgery on left finger nn Monday at 07:30 A.M. She will be NPO after midnight today. Pt with right elbow abrasion, being treated with triple antibiotic. Pt is alert and oriented x4, breathing is even and unlabored, is eating in the room. Safety measures in place : bed on lowest position with side rails x2 up for safety, call light within reach. Will continue to monitor closely and offer help.
[2017-08-19 20:00] VITALS: BP 135/78
--- NOTE | 2017-08-19 21:00 | NUR ---
PRN VISTARIL, MOTRIN Pt. complains of increased level of anxiety, tooth pain 02/18. PRN VISTARIL, MOTRIN given as ordered. Safety measures in place : bed on lowest position with side rails x2 up for safety, call light within reach. Will continue to monitor closely and offer help.
[2017-08-19] MEDS: HYDROXYZINE PAMOATE 25 MG CAPSULE PO PRN (21:29)
[2017-08-19] MEDS: PROPRANOLOL HCL 20 MG TABLET PO SCH (21:29)
[2017-08-19] MEDS: QUETIAPINE FUMARATE 200 MG TABLET PO SCH (21:29)
[2017-08-19] MEDS: IBUPROFEN 600 MG TABLET PO PRN (21:54)
--- NOTE | 2017-08-20 | NUR ---
NPO , ROOM SEARCHED , ALL FOOD and DRINKS REMOVED Consent for operation and general anaesthesia obtained.
[2017-08-20 06:28] VITALS: BP 95/60
--- NOTE | 2017-08-20 06:54 | NUR ---
END OF SHIFT NOTE : Pt. is 27 year old female patient admitted on 08/13/17 for Opiate, methamphetamine, crack cocaine, Phenobarbital, marijuana and Xanax dependency. Pt is full code with NKA. She reports a PMHx of seizure related to benzo withdrawal, anxiety, hep C and 2nd left finger injury. Pt is currently on modified 6 day Subutex and 7 day Valium taper and tolerating well. Per endorsement, pt is scheduled to have surgery on left finger today at 07:30 A.M. She is NPO after midnight. Pt remains compliant with the treatment plan. PRN VISTARIL, MOTRIN were given during my shift. V/S remain WNL. RR=16, even and unlabored, lungs clear upon auscultation, abdomen soft and non- distended. Pt denies nausea, vomiting and diarrhea. CIWA and COWS taken when pt. was alert during the night, LAST CIWA=4 ,COWS=5 at 0400 , [id number] ml, voided 5 x , slept 6 hours. Safety measures in place : bed on lowest position with side rails x2 up for safety, call light within reach. Will continue to monitor closely and offer help.
--- NOTE | 2017-08-20 06:54 | NUR ---
REPORT TO OP RN GIVEN
--- NOTE | 2017-08-20 06:59 | NUR ---
Discharge note : Pt. is in stable condition , BP=95/60, HR=76/min, Temp=98.2, SpO2=97%, Left hand pain level=2/10, denies any suicidal or homicidal ideations, all discharge irving work signed and dated, pt will be discharged from [facility] 08/20/2017 at 0715 , when OP RN will pick her up. Pt. will left the unit for surgery, scheduled at 07:30. notified. Report to OP RN given.
--- NOTE | 2017-08-20 07:15 | NUR ---
Pt to OR in stable condition
[2017-08-20] MEDS: NEOMY/BACITRAC/POLYMI OINT 28.35 GM TUBE TOP SCH ×2 (09:00→21:45)
[2017-08-20] MEDS: FOLIC ACID 1 MG TABLET PO SCH (09:00)
[2017-08-20] MEDS: GABAPENTIN 300 MG CAPSULE PO SCH ×3 (09:00→21:44)
[2017-08-20] MEDS: PROPRANOLOL HCL 20 MG TABLET PO SCH ×2 (09:00→21:45)
[2017-08-20] MEDS: MULTIVITAMINS,THERAPEUTIC TABLET PO SCH (09:00)
[2017-08-20] MEDS: BACLOFEN 20 MG TABLET PO SCH ×3 (09:00→19:37)
[2017-08-20] MEDS: DOCUSATE SODIUM 250 MG CAPSULE PO SCH (09:00)
[2017-08-20] MEDS: THIAMINE HCL 100 MG TABLET PO SCH (09:00)
[2017-08-20] MEDS: PANTOPRAZOLE SODIUM 40 MG TABLET.DR PO SCH (09:00)
--- NOTE | 2017-08-20 10:05 | NUR ---
PT RETURNED FROM OR.A/O X 4 . REPORT RECEIVED FROM TORY LISA. RN REPORTS PT HAD CLOSED REDUCTION SX WITH A PIN INSERTED TO LEFT 2ND METACARPAL. BP ON ARRIVAL TO UNIT 113/79 95 98.3 95% 16. IV LACTATED RINGERS RUNNING RFA PATENT WITH NO REDNESS OR SWELLING NOTED. SHE REPORTS PAIN /. WILL CONTACT PHARMACY REGARDING NEW ORDERS.
[2017-08-20] MEDS ORDERED: HYDROMORPHONE 1 MG/1 ML DISP.SYRIN IV PRN (10:15)
[2017-08-20] MEDS ORDERED: IV NS 1000 ML 1,000 ML IV PRN (10:15)
[2017-08-20] MEDS ORDERED: HYDROCODONE/APAP 5-325MG TABLET PO PRN (10:15)
--- NOTE | 2017-08-20 10:25 | NUR ---
PRN NORCO GIVEN FOR PAIN 10/10 PER MD. WILL MONITOR EFFECTIVENESS.
[2017-08-20] MEDS ORDERED: MORPHINE SULFATE 4 MG/1 ML DISP.SYRIN IV PRN (10:45)
--- NOTE | 2017-08-20 11:25 | NUR ---
PRN NORCO EFFECTIVE PT IS SLEEPING.
[2017-08-20 12:00] VITALS: BP 115/72
[2017-08-20] MEDS ORDERED: IBUPROFEN 800 MG TABLET PO PRN (12:00)
[2017-08-20] MEDS: METHOCARBAMOL 750 MG TABLET PO PRN (12:35)
--- NOTE | 2017-08-20 12:39 | NUR ---
PRN MOTRIN 800 MG PO GIVEN AND ROBAXIN PO PRN GIVEN FOR REPORTED PAIN 8/10 ON SCALE. WILL MONITOR EFFECTIVENESS.
--- NOTE | 2017-08-20 13:39 | NUR ---
PT STATES MOTRIN AND ROBAXIN WERE NOT EFFECTIVE. SHE IS DEMANDING NARCOTICS AND THREATENING TO LEAVE AMA IF SHE DOES NOT RECEIVE THEM. MD MADE AWARE. ONE TIME TORADOL 60 MG IM ORDERED FOR PAIN 8 /10 ON SCALE. WILL MONITOR EFFECTIVENESS.
--- NOTE | 2017-08-20 14:14 | NUR ---
IV NS @ 100cc/hr started via pump
[2017-08-20] MEDS ORDERED: KETOROLAC TROMETHAMINE 60 MG INJ IM ONE (14:15)
--- NOTE | 2017-08-20 14:20 | NUR ---
PT STATES TORADOL WAS EFFECTIVE AND STATES PAIN IS 6/10 ON SCALE. WILL CONTINUE TO MONITOR.
[2017-08-20] MEDS: ACETAMINOPHEN ES 500 MG TABLET PO SCH ×2 (14:31→21:44)
[2017-08-20] MEDS: CEFAZOLIN 1 G in PREMIXED 1 EACH IV SCH ×2 (15:01→23:47)
[2017-08-20 16:00] VITALS: BP 121/74
--- NOTE | 2017-08-20 18:40 | NUR ---
END OF SHIFT: PT WENT FOR L HAND SURGERY THIS AM TO L 2ND METACARPAL. CLOSED REDUCTION DONE IN OR . PT RETURNED AT 1005 WITH FULL ARM SOFT CAST. SHE HAS NS RUNNING AT 100 TO RFA.IV SITE PATENT WITH NO REDNESS OR SWELLING NOTED. NORCO GIVEN BEFORE NARCOTICS WERE DISCONTINUED. 60 MG TORADOL ONE TIME GIVEN IM AND MOTRIN AND ROBAXIN ALSO GIVEN OR PAIN ALONG WITH SCHEDULED TYLENOL. NON NARCOTIC PRN MEDS AVAILABLE FOR PAIN. PT IS IRRITABLE AND STATES SHE IS UNHAPPY THAT SHE IS NOT GETTING NARCOTICS FOR PAIN.OFFERED SUPPORT.ENCOURAGED REST. WILL PASS SHIFT REPORT TO ONCOMING NURSE.TAPERS COMPLETED. LAST COWS 2 CIWA 1. WILL PASS SHIFT REPORT TO ONCOMING NIGHT NURSE.
--- NOTE | 2017-08-20 19:15 | NUR ---
START OF SHIFT NOTE : Pt. is 27 year old female patient admitted on 08/13/17 for Opiate, methamphetamine, crack cocaine, Phenobarbital, marijuana and Xanax dependency. Pt is full code with RUBI. She reports a PMHx of seizure related to benzo withdrawal, anxiety, hep C and 2nd left finger injury. Pt completed modified 6 day Subutex and 7 day Valium taper , tolerated well. Per endorsement, pt came from surgery WITH FULL ARM SOFT CAST. SHE HAS NS RUNNING AT 100 TO RFA. IV SITE PATENT WITH NO REDNESS OR SWELLING. Pt is alert and oriented x3, breathing is even and unlabored, is eating in the room. Safety measures in place : bed on lowest position with side rails x2 up for safety, call light within reach. Will continue to monitor closely and offer help.
[2017-08-20] MEDS: KETOROLAC TROMETHAMINE 30 MG INJ IM PRN (19:38)
[2017-08-20 20:00] VITALS: BP 110/77
[2017-08-20] MEDS ORDERED: IBUP-1957 PO (20:07)
[2017-08-20] MEDS ORDERED: ACET-2605 PO (20:07)
--- NOTE | 2017-08-20 21:00 | NUR ---
PRN TORADOL IM, VISTARIL, BENADRYL Pt. complains of increased level of anxiety, mild sleeplessness, pain in the left hand 8/10. PRN TORADOL IM, VISTARIL, BENADRYL given as ordered. Safety measures in place : bed on lowest position with side rails x2 up for safety, call light within reach. Will continue to monitor closely and offer help.
[2017-08-20] MEDS: QUETIAPINE FUMARATE 200 MG TABLET PO SCH (21:45)
--- NOTE | 2017-08-20 22:00 | NUR ---
RE-ASSESSMENT TORADOL IM, VISTARIL, BENADRYL Pt. is sleeping, RR=16 unlabored and even. Safety measures in place : bed on lowest position with side rails x2 up for safety, call light within reach. Will continue to monitor closely and offer help.
[2017-08-20] MEDS: HYDROXYZINE PAMOATE 25 MG CAPSULE PO PRN (23:47)
--- NOTE | 2017-08-21 00:15 | NUR ---
IV DOESN'T WORK , STOPPED
--- NOTE | 2017-08-21 03:00 | NUR ---
PRN TORADOL IM, Pt. complains of pain in the left hand 04/20. PRN TORADOL IM given as ordered. Safety measures in place : bed on lowest position with side rails x2 up for safety, call light within reach. Will continue to monitor closely and offer help.
--- NOTE | 2017-08-21 04:00 | NUR ---
RE-ASSESSMENT TORADOL IM Pt. is sleeping, RR=16 unlabored and even. Safety measures in place : bed on lowest position with side rails x2 up for safety, call light within reach. Will continue to monitor closely and offer help.
[2017-08-21] MEDS: KETOROLAC TROMETHAMINE 30 MG INJ IM PRN (05:03)
--- NOTE | 2017-08-21 06:31 | NUR ---
END OF SHIFT NOTE : Pt. is 27 year old female patient admitted on 08/13/17 for Opiate, methamphetamine, crack cocaine, Phenobarbital, marijuana and Xanax dependency. Pt is full code with NKA. She reports a PMHx of seizure related to benzo withdrawal, anxiety, hep C and 2nd left finger injury. Pt completed modified 6 day Subutex and 7 day Valium taper , tolerated well. Pt came from surgery WITH FULL ARM SOFT CAST. IV site doesnt work properly, IV was stopped after MN. Pt remains partially compliant with the treatment plan. PRN TORADOL, BENADRYL, VISTARIL were given during my shift. V/S remain WNL. RR=16, even and unlabored, lungs clear upon auscultation, abdomen soft and non- distended. Pt denies nausea, vomiting and diarrhea. CIWA and COWS taken when pt. was alert during the night, LAST CIWA=3 ,COWS=4 at 0400 , [id number] ml, voided x 5, slept 4 1/2 hours. Safety measures in place : bed on lowest position with side rails x2 up for safety, call light within reach. Will continue to monitor closely and offer help.
--- NOTE | 2017-08-21 07:41 | NUR ---
START OF SHIFT Received report from rn shift mgr nurse. 27 year old female patient admitted on 08/13/17 for opiate, benzo, methamphetamine, and crack/cocaine withdrawals. Pt has completed a 6 day Subutex and 7 day Valium taper and is medically cleared for discharge. No S/S of acute withdrawals. Pt had a fracture on left hand and completed scheduled surgery on 08/21/17, pt is currently in a hard cast, pt to follow up outpatient. Toradol administered x2 for pain and effective. PRN Vistaril administered and effective. Pt slept for 5 hours. IV removed due to infiltration. Wound care provided by night nurse. Most recent CIWA is 3, and COWS 4. All needs met at this time, will continue to monitor.
[2017-08-21 08:09] VITALS: BP 103/79
[2017-08-21 08:34] VITALS: BP 103/79
[2017-08-21] MEDS: MULTIVITAMINS,THERAPEUTIC TABLET PO SCH (08:34)
[2017-08-21] MEDS: PROPRANOLOL HCL 20 MG TABLET PO SCH (08:34)
[2017-08-21] MEDS: GABAPENTIN 300 MG CAPSULE PO SCH (08:35)
[2017-08-21] MEDS: PANTOPRAZOLE SODIUM 40 MG TABLET.DR PO SCH (08:35)
[2017-08-21] MEDS: FOLIC ACID 1 MG TABLET PO SCH (08:35)
[2017-08-21] MEDS: THIAMINE HCL 100 MG TABLET PO SCH (08:35)
[2017-08-21] MEDS: DOCUSATE SODIUM 250 MG CAPSULE PO SCH (08:35)
[2017-08-21] MEDS: ACETAMINOPHEN ES 500 MG TABLET PO SCH (08:35)
[2017-08-21] MEDS: BACLOFEN 20 MG TABLET PO SCH (08:35)
[2017-08-21] MEDS: NEOMY/BACITRAC/POLYMI OINT 28.35 GM TUBE TOP SCH (08:39)
--- NOTE | 2017-08-21 10:52 | NUR ---
D/C NOTE Pt is in stable condition. Vitals WNL, Pt alert and oriented x4, skin intact, Pt denies any SI/HI. All discharge paperwork completed dated and signed. Pt educated about discharge instruction. Pt was provided with all of his discharge paperwork. Pt's last COWS:4 and CIWA:3 taken at 0800. Pt left the building with all belongings, prescriptions and no home medications. MD and psychiatrist have been contacted notified and aware of pt's d/c.
== END 2017-08-21 10:52 | DRG 895 ==
LOC: SRC 11:32
PROVIDERS: ADMIT Internal Medicine; ATTEND Internal Medicine
PROC: HZ2ZZZZ Detoxification Services for Substance Abuse Treatment (ICD-10-PCS; principal; 2017-08-13)
PROC: HZ31ZZZ Individual Counseling for Substance Abuse Treatment, Behavioral (ICD-10-PCS; 2017-08-14)
DX: F11.23 Opioid dependence with withdrawal (principal); E83.42 Hypomagnesemia; D64.9 Anemia, unspecified; E87.6 Hypokalemia; S62.331A Displaced fracture of neck of second metacarpal bone, left hand, initial encounter for closed fracture; F12.10 Cannabis abuse, uncomplicated; F15.21 Other stimulant dependence, in remission; F17.210 Nicotine dependence, cigarettes, uncomplicated; F13.230 Sedative, hypnotic or anxiolytic dependence with withdrawal, uncomplicated; Z91.89 Other specified personal risk factors, not elsewhere classified; Y00.XXXA Assault by blunt object, initial encounter; Y92.89 Other specified places as the place of occurrence of the external cause; Z59.0 Homelessness; G47.00 Insomnia, unspecified; F14.10 Cocaine abuse, uncomplicated; F41.9 Anxiety disorder, unspecified; Z20.5 Contact with and (suspected) exposure to viral hepatitis; R73.9 Hyperglycemia, unspecified
CPT/HCPCS: 36415; 71010; 73130; 80307; 80324; 80345; 80349; 80353; 80361; 83735; 84100; 84703; 85025; 86592; 86705; 86803; 87340; 87806; 93005; 97165; A4663; G0480; J0690; J1885; J7030; Q0162; Q0163

== ENCOUNTER → 2017-08-17 | Day surgery (SDC) | payer BC ==
[~2017-08-17] MED LIST: ACET-2605 PO; BACL20TA PO; DICY20TA28 PO; DIPH50CA37 PO; GABA-534 PO; GABA800T2 PO; HYDR-3895 PO; IBUP-1955 PO; IBUP-1957 PO; PANT40TA2 PO; PROP20TA22 PO; QUET200T PO; QUET400T PO
== END | disposition left against medical advice (07) ==
LOC: DS 05:22
PROVIDERS: ATTEND Orthopaedic Surgery
DX: Z53.8 Procedure and treatment not carried out for other reasons (principal)

== ENCOUNTER 2017-08-19 05:24 | Day surgery (SDC) | payer BC ==
[~2017-08-19 05:24] MED LIST changes: -ACET-2605 PO; -BACL20TA PO; -DICY20TA28 PO; -DIPH50CA37 PO; -GABA-534 PO; -HYDR-3895 PO; -IBUP-1955 PO; -IBUP-1957 PO; -PANT40TA2 PO; -PROP20TA22 PO; -QUET200T PO
[2017-08-19] MEDS ORDERED: DIPH50CA37 PO (15:11)
[2017-08-19] MEDS ORDERED: QUET200T PO (15:11)
[2017-08-19] MEDS ORDERED: PANT40TA2 PO (15:11)
[2017-08-19] MEDS ORDERED: BACL20TA PO (15:11)
[2017-08-19] MEDS ORDERED: DICY20TA28 PO (15:11)
[2017-08-19] MEDS ORDERED: GABA-534 PO (15:11)
[2017-08-19] MEDS ORDERED: IBUP-1955 PO (15:11)
[2017-08-19] MEDS ORDERED: PROP20TA22 PO (15:11)
[2017-08-19] MEDS ORDERED: HYDR-3895 PO (15:11)
[2017-08-20] MEDS ORDERED: FENTANYL CITRATE 250 MCG/5 ML AMPUL ONE (07:30)
[2017-08-20] MEDS ORDERED: MIDAZOLAM HCL 2 MG/2 ML VIAL ONE (07:30)
[2017-08-20] MEDS ORDERED: FENTANYL CITRATE 100 MCG/2 ML AMPUL ONE (09:13)
[2017-08-20] MEDS ORDERED: ACET-2605 PO (20:07)
[2017-08-20] MEDS ORDERED: IBUP-1957 PO (20:07)
== END 2017-08-20 10:00 | disposition still patient (30) ==
LOC: DS 05:24
PROVIDERS: ATTEND Orthopaedic Surgery
DX: S62.301A Unspecified fracture of second metacarpal bone, left hand, initial encounter for closed fracture (principal); X58.XXXA Exposure to other specified factors, initial encounter; Y93.9 Activity, unspecified; Y92.89 Other specified places as the place of occurrence of the external cause; Y99.9 Unspecified external cause status; F41.9 Anxiety disorder, unspecified; F11.20 Opioid dependence, uncomplicated; Z87.891 Personal history of nicotine dependence
CPT/HCPCS: 73120; 73140; 76000; A4649; C1713; J2250; J3010